=== PATIENT | female | born 1965 | race African-American/Black ===

== ENCOUNTER 2020-12-12 07:08 | Emergency (ER) | payer OTHER ==
[~2020-12-12] VITALS: Ht 162.6 cm; Wt 136.1 kg
[2020-12-12] MEDS ORDERED: LOSARTAN-HCTZ1 EAC3 PO (07:19)
[2020-12-12] MEDS ORDERED: NEURONTIN300 MG PO (07:20)
[2020-12-12] MEDS ORDERED: OMEPRAZOLE40 MG PO (07:20)
[2020-12-12] MEDS ORDERED: FLEXERIL PO (07:20)
[2020-12-12 08:02] LABS: BASOPHILS 0.6 % (0.0-2.0); EOSINOPHILS 3.8 % (0.0-3.0); HEMATOCRIT 31.8 % (37.0-47.0); HEMOGLOBIN 10.4 gm/dL (12.0-15.0); MCH 24.6 pg (26.0-34.0); MCHC 32.8 g/dL (28.0-37.0); MONOCYTES 6.8 % (1.0-8.0); PLATELET COUNT 301 thou/uL (150-400); POLYS 63.8 % (36.0-66.0); RBC 4.24 mil/uL (4.20-5.00); RDW 17.8 % (10.5-14.5); WBC 9.4 thou/uL (4.0-11.0)
[2020-12-12 08:08] LABS: CALCIUM 8.8 mg/dL (8.5-10.1); CREATININE 0.8 mg/dL (0.6-1.0); POTASSIUM 3.8 mmol/L (3.5-5.1)
[2020-12-12 08:15] LABS: ALBUMIN 2.9 g/dL (3.4-5.0); TOTAL BILIRUBIN 0.4 mg/dL (0.2-1.0); TOTAL PROTEIN 7.8 g/dL (6.4-8.2)
[2020-12-12 09:24] LABS: URINE BILIRUBIN NEGATIVE (Negative); URINE BLOOD 2+ (Negative); URINE CLARITY CLEAR; URINE COLOR YELLOW; URINE GLUCOSE-RANDOM* NEGATIVE (Negative); URINE KETONES NEGATIVE (Negative); URINE LEUKOCYTES-REFLEX NEGATIVE (Negative); URINE NITRITE-REFLEX NEGATIVE (Negative); URINE PROTEIN (DIPSTICK) NEGATIVE (Negative); URINE SPECIFIC GRAVITY 1.025 (1.005-1.035); URINE UROBILINOGEN 0.2 E.U./dl (0.2-1.0)
[2020-12-12 09:35] LABS: BACTERIA-REFLEX 1-9 Few /HPF (None Seen); CASTS None Seen /LPF (None Seen); CRYSTALS None Seen /LPF (None Seen); MUCUS 4-6 Moderate strn/LPF (None Seen); SQUAMOUS 0-3 Few /LPF (0-3); URINE RBC 1-2 Rare /HPF (NONE SEEN); URINE WBC-REFLEX 0-5 Rare /HPF (0-5)
[2020-12-12] MEDS ORDERED: NORCO5 PO (09:56)
[2020-12-12] MEDS ORDERED: ZOFRAN ODT4 MG PO (09:56)
[2020-12-12] MEDS ORDERED: BACTRIM DS TAB1 EACH PO (09:56)
[2020-12-12 10:10] VITALS: BP 122/52
--- NOTE | 2020-12-12 13:23 | EKG ---
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: TRA : 1965 Requested By: Dylan Rodriguez Order Number: [id number] MD: Konstantin Camacho Measurements Intervals [place] Rate: 97 P: 35 [place]: 153 QRS: 2 QRSD: 87 T: 31 QT: 406 QTc: 516 Interpretive Statements Sinus rhythm Low voltage, precordial leads Borderline T wave abnormalities Prolonged QT interval Baseline wander in lead(s) V6 No previous ECG available for comparison Electronically Signed On 12-12-2020 13:22:44 CDT by Konstantin Camacho [email or web address] <ELECTRONICALLY SIGNED> By: Konstantin Camacho MD, [facility] 12/12/20 1322 [id number] Konstantin Camacho MD, FACC /EPI
== END 2020-12-12 10:20 | disposition home or self-care (01) ==
LOC: ER 07:08
PROVIDERS: Emergency Medicine
DX: N39.0 Urinary tract infection, site not specified (principal); L03.311 Cellulitis of abdominal wall; R10.31 Right lower quadrant pain; I10 Essential (primary) hypertension; Z79.899 Other long term (current) drug therapy

== ENCOUNTER 2021-04-03 16:45 | Emergency (ER) | payer OTHER ==
[~2021-04-03] VITALS: Ht 162.6 cm; Wt 136.1 kg
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
[~2021-04-03 16:45] MED LIST: BACTRIM DS TAB1 EACH PO; FLEXERIL PO; LOSARTAN-HCTZ1 EAC3 PO; NEURONTIN300 MG PO; NORCO5 PO; OMEPRAZOLE40 MG PO; ZOFRAN ODT4 MG PO
[2021-04-03 17:15] LABS: ABSOLUTE NEUTROPHILS 7.6 thou/uL (1.4-8.2); BASOPHILS 1.3 % (0.0-2.0); EOSINOPHILS 1.9 % (0.0-3.0); HEMATOCRIT 28.9 % (37.0-47.0); HEMOGLOBIN 8.9 gm/dL (12.0-15.0); LYMPHOCYTES 11.4 % (24.0-44.0); MCH 23.2 pg (26.0-34.0); MCHC 30.9 g/dL (28.0-37.0); MCV 75.1 fL (80.0-100.0); MONOCYTES 8.2 % (1.0-8.0); PLATELET COUNT 232 thou/uL (150-400); POLYS 77.2 % (36.0-66.0); RBC 3.85 mil/uL (4.20-5.00); RDW 24.9 % (10.5-14.5); WBC 9.8 thou/uL (4.0-11.0)
[2021-04-03 17:19] LABS: URINE BILIRUBIN NEGATIVE (Negative); URINE BLOOD 2+ (Negative); URINE CLARITY CLEAR; URINE COLOR YELLOW; URINE GLUCOSE-RANDOM* NEGATIVE (Negative); URINE KETONES NEGATIVE (Negative); URINE LEUKOCYTES-REFLEX NEGATIVE (Negative); URINE NITRITE-REFLEX NEGATIVE (Negative); URINE PROTEIN (DIPSTICK) NEGATIVE (Negative); URINE UROBILINOGEN 0.2 E.U./dl (0.2-1.0)
[2021-04-03 17:24] LABS: CALCIUM 8.4 mg/dL (8.5-10.1); CREATININE 0.9 mg/dL (0.6-1.0); POTASSIUM 4.3 mmol/L (3.5-5.1)
[2021-04-03 17:30] LABS: BACTERIA-REFLEX None Seen /HPF (None Seen); SQUAMOUS 0-3 Few /LPF (0-3); URINE RBC 1-2 Rare /HPF (NONE SEEN)
[2021-04-03 17:31] LABS: CRYSTALS None Seen /LPF (None Seen); URINE WBC-REFLEX None Seen /HPF (0-5)
[2021-04-03 17:31] LABS: ALBUMIN 2.3 g/dL (3.4-5.0); TOTAL BILIRUBIN 0.4 mg/dL (0.2-1.0); TOTAL PROTEIN 6.7 g/dL (6.4-8.2)
[2021-04-03 18:09] LABS: ANISOCYTOSIS 2+; HYPOCHROMASIA 1+
[2021-04-03 18:13] VITALS: BP 124/77
[2021-04-03 18:13] LABS: APTT 23.6 Seconds (24.5-32.8); D-DIMER 3.82 ug/mLFEU (0.19-0.50); INR 0.99; PROTIME 10.8 Seconds (10.5-12.1)
--- NOTE | 2021-04-04 09:44 | EKG ---
[facility] [place] [address] ELECTROCARDIOGRAM REPORT Name: ARABELLA ZHANG [id number] Admission: 04/03/21 Attend Phys: Discharge: 04/04/21 Date of : 63 Report #: [id number] [facility] ED Test Date: 2021-04-03 Test Time: 16:52:34 Pat Name: ARABELLA ZHANG Department: Room: Gender: F Director Medical Safety: Mg GALINDO : 1965 Requested By: Kari Del Cid Order Number: [id number] MD: Cortes Moses Measurements Intervals [place] Rate: 115 P: 56 [place]: 136 QRS: -8 QRSD: 83 T: 42 QT: 300 QTc: 415 Interpretive Statements Sinus tachycardia LVH by voltage Baseline wander in lead(s) II,III,aVF Compared to ECG 12/12/2020 07:55:19 Heart rate has increased T wave abnormality no longer present Electronically Signed On 04-04-2021 9:44:34 CDT by Cortes Moses [email or web address] <ELECTRONICALLY SIGNED> By: Cortes Moses MD, [facility] 04/04/21 0944 [id number] Cortes Moses MD, [facility] /EPI
== END 2021-04-04 00:25 | disposition home or self-care (01) ==
LOC: ER 16:45
PROVIDERS: Nurse Practitioner Family
DX: G89.29 Other chronic pain (principal); Z20.822 Contact with and (suspected) exposure to COVID-19; R10.30 Lower abdominal pain, unspecified; D64.9 Anemia, unspecified; I11.0 Hypertensive heart disease with heart failure; I50.9 Heart failure, unspecified; F32.9 Major depressive disorder, single episode, unspecified; Z79.899 Other long term (current) drug therapy; Z99.81 Dependence on supplemental oxygen; Z88.8 Allergy status to other drugs, medicaments and biological substances